=== PATIENT | female | born 1985 | race Caucasian/White ===

== ENCOUNTER 2019-02-11 19:51 | Emergency (ER) | payer OTHER ==
[~2019-02-11] VITALS: Ht 162.6 cm; Wt 59.0 kg
== END 2019-02-12 03:49 | disposition home or self-care (01) ==
LOC: ER 19:51
DX: O20.0 Threatened abortion (principal)

== ENCOUNTER 2019-09-19 08:09 | Inpatient (IN) | payer OTHER ==
[~2019-09-19] VITALS: Ht 167.6 cm; Wt 80.3 kg
[2019-09-19] MEDS ORDERED: PRENATAL TABLE1 EAC1 PO (08:59)
== END 2019-09-23 18:35 | disposition home or self-care (01) | DRG 788 ==
LOC: LDR 08:09 → OB/GYN 09-20 21:21
PROVIDERS: ADMIT Specialist
PROC: 3E0P7VZ Introduction of Hormone into Female Reproductive, Via Natural or Artificial Opening (ICD-10-PCS; 2019-09-19)
PROC: 3E033VJ Introduction of Other Hormone into Peripheral Vein, Percutaneous Approach (ICD-10-PCS; 2019-09-19)
PROC: 4A1HXCZ Monitoring of Products of Conception, Cardiac Rate, External Approach (ICD-10-PCS; 2019-09-19)
PROC: 10907ZC Drainage of Amniotic Fluid, Therapeutic from Products of Conception, Via Natural or Artificial Opening (ICD-10-PCS; 2019-09-20)
PROC: 10D00Z1 Extraction of Products of Conception, Low, Open Approach (ICD-10-PCS; principal; 2019-09-20 18:00)
DX: O61.0 Failed medical induction of labor (principal); O99.824 Streptococcus B carrier state complicating childbirth; Z3A.39 39 weeks gestation of pregnancy; Z37.0 Single live birth